=== PATIENT | male | born 1985 | race Caucasian/White ===

== ENCOUNTER 2023-06-13 17:09 | Emergency (ER) | payer SELFPAY ==
[~2023-06-13] VITALS: Ht 187.9 cm; Wt 86.2 kg
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
[2023-06-13] MEDS ORDERED: LIDOCAINE 1% INJ 20 ML VIAL ONE (17:29)
[2023-06-13] MEDS ORDERED: Tetanus/Diphtheria/Pertussis (Acell) ADULT Vaccine 0.5 ML IM ONE (17:30)
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
[2023-06-13] MEDS ORDERED: ceFAZolin 1,000 MG VIAL IV ONE (18:30)
[2023-06-13] MEDS ORDERED: ceFAZolin 1,000 MG VIAL IM ONE ×2 (18:30)
[2023-06-13 18:50] VITALS: BP 160/87
== END 2023-06-13 18:50 | disposition home or self-care (01) ==
LOC: EDUNIT# 17:09 → ER 17:12
DX: S02.85XA Fracture of orbit, unspecified, initial encounter for closed fracture (principal); S01.81XA Laceration without foreign body of other part of head, initial encounter; Z23 Encounter for immunization; V17.4XXA Pedal cycle driver injured in collision with fixed or stationary object in traffic accident, initial encounter; Y93.55 Activity, bike riding; Y92.828 Other wilderness area as the place of occurrence of the external cause
CPT/HCPCS: 12052; 70450; 70486; 71100; 90471; 90715; 96374

== ENCOUNTER 2023-06-20 16:27 | Emergency (ER) | payer SELFPAY ==
[~2023-06-20] VITALS: Ht 187 cm; Wt 86.0 kg
[2023-06-20 16:31] VITALS: BP 158/82
== END 2023-06-20 16:42 | disposition home or self-care (01) ==
LOC: EDUNIT# 16:27 → ER 16:29
DX: Z48.02 Encounter for removal of sutures (principal)